=== PATIENT | female | born 1945 | race Caucasian/White ===

== ENCOUNTER 2022-03-30 00:19 | Day surgery (SDC) | payer MEDICARE, SELFPAY ==
--- NOTE | 2022-03-22 14:25 | PC.NURSE ---
Report to the Outpatient Waiting Room, entrance under the green pavilion located off [facility], at time _0600 on date _03/30/22 . OR Time: _0730 . Time changes happen often and if your time is changed the preop area will call you the afternoon before. - You and your visitor will be asked to self-screen and do not enter if you have any COVID symptoms. - Only one visitor and NO children visitors are allowed at this time. - The patient visitor is requested to leave or wait in car when not with patient due to restrictions. - A mask is required within the hospital. Patients may have clear liquids (water, carbonated beverages, clear teas, apple juice) until 3 hours prior to surgery with a maximum of 20 ounces. - No food from midnight until time of surgery - Infants may have breast milk until 4 hours before surgery, infant formula 6 hours prior to surgery. - Children will be allowed to drink immediately following surgery. If applicable, please bring a bottle or sippy cup to assist with drinking. Juice, water, soda, and popsicles are readily available. For infants on formula, please bring formula the day of surgery. Pacifiers are allowed. Take the following medications with a SIP of water the morning of surgery: __ADVAIR INHALER Medications to discontinue per physician ___PT STATES ELIQUIS 5 DAYS PRE OP PER DR PYLE . ALL VITAMINS AND SUPPLEMENTS 3 DAYS PRE OP Date to take last doseELIQUIS___03/24/22 AND VITAMINS AND SUPPLEMENTS 03/26/22 Please no make-up, nail yoruba, hairspray, perfume, deodorant, or body powder the day of surgery. No jewelry (including any body piercings) or valuables the day of surgery, leave them at home. Please take a shower or bath the night before, or the morning of, surgery with an antibacterial soap. Wear comfortable, loose fitting clothing. Children are encouraged to wear pajamas. - Jewelry must be removed prior to entering the operating room. Rings and piercings that are not removed may be cut off. - The hospital will not accept responsibility for valuables. - Please leave all valuables, including medications, at home the day of surgery. If you are going home after surgery, a licensed route sales delivery driver must drive you home. - NO public transportation without another adult. - We recommend that an adult stay with you for 24 hours following discharge. - We also recommend that you do not drive, make important decision, drink alcoholic beverages, or take any drugs that were not prescribed by your health care provider for at least 24 hours after your discharge time. For Pediatric surgeries, we recommend two adults accompany the child home (only one inside the building at this time). Follow any additional instructions given to you from your surgeon. If you or anyone in your household have experienced Covid symptoms in the past week, please notify your surgeon or the nurse liaison at the phone number below for possible testing. Telephone instructions given to __PATIENT and asked if any additional questions and then verbalized understanding. Patient advised to call surgeon office or pre surgery nurse liaison [phone] if any additional questions.
[2022-03-22 14:35] VITALS: BMI 19.1
[2022-03-30 06:16] VITALS: BP 155/81; PULSE 79; RESP 16; TEMP 36.6; O2SAT 98
--- NOTE | 2022-03-30 06:52 | WPDANESEPPF ---
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 Patient Data Age: 77 Gender: F Height: 1.65 m Weight: 52.2 kg Last Vital Signs Temp 36.6 C 03/30/22 06:16 Pulse 79 03/30/22 06:16 Resp 16 03/30/22 06:16 BP 155/81 H 03/30/22 06:16 Pulse Ox 98 03/30/22 06:16 O2 Del Method Room Air 03/30/22 06:16 Allergies Allergy/AdvReac Type Severity Reaction Status Date / Time No Known Allergies Allergy Verified 03/30/22 06:08 Home Medications Medication Instructions Recorded Confirmed Type alprazolam 0.5 mg tablet 0.5 mg PO PRN PRN Insomnia 03/22/22 03/30/22 History apixaban 5 mg tablet (Eliquis) 5 mg PO BID 03/22/22 03/30/22 History calcium carb-ergocalciferol (vit 1 tablet PO DAILY 03/22/22 03/30/22 History D2) 600 mg calcium-200 unit tablet fluticasone propionate 115 4 puff inhalation BID 03/22/22 03/30/22 History mcg-salmeterol 21 mcg/actuation HFA inhaler (Advair HFA) nicotine 7 mg/24 hr daily 7 mg transdermal DAILY 03/22/22 03/30/22 History transdermal patch psyllium seed (sugar) oral powder 1 tbsp PO DAILY 03/22/22 03/30/22 History Patient hx anesthesia problems: none Family hx anesthesia problems: none Results Review: All pre-operative results and documents have been reviewed as part of the pre-operative evaluation. FOR[facility]LY [facility] Past Medical History Medical History COPD (chronic obstructive pulmonary disease) Lung cancer Pulmonary embolism Social History Social History Smoking packs per day: 0.5 Smoking cigarettes per day: 10.0 Years smoked: 15 Smoking pack-years: 7.50 Smoking status: Former smoker Tobacco type: cigarettes Smoking end date: 03/01/22 Alcohol intake: never Living arrangements: alone Spiritual care concerns: No Anes - Eval Final PreProcedure Day of Procedure 03/30/22 06:52 Patient weight: normal Heart: regular rate and rhythm Lungs: decreased breath sounds Airway: Mallampati scale class II Neurological: other (alert) Last oral intake: >/= 8 hours ASA classification: III Emergent: no Anesthetic plan: proceed Anesthesia type and monitoring: general LMA and standard monitoring Results Review: All pre-operative results and documents have been reviewed as part of the pre-operative evaluation. Informed Consent: The patient's anesthetic plan and its attendant risks and benefits were discussed with the patient/family/POA. Questions were solicited and answers provided to the satisfaction of the patient/family/POA.
[2022-03-30] MEDS: LACTATED RINGERS 1,000 ML 30 ML IV CONT ×2 (06:55→08:58)
--- NOTE | 2022-03-30 07:01 | WPDHPUPDATE1 ---
History and Physical Update Update Date/Time: 03/30/22 07:01 History and Physical has been reviewed, including an updated exam of the patient. There are NO changes in the patient's condition. Risks, benefits, and alternatives have been discussed and questions answered. Patient agrees to proceed with procedure.
--- NOTE | 2022-03-30 07:12 | P.OP_ITS ---
Procedure Note - Detailed Date of Procedure 03/30/22 Pre-op Diagnosis Squamous Cell Ca of nose Post-op Diagnosis Same Procedure Performed 1. Excision SCC nose with FS 5.2cm 2. FTSG nose 5.2 x 3.2cm (16.64cm2) Surgeon Dustin Box MD Findings Incidental BCC noted in specimen. Margins clear on FS. Description of Procedure Preoperatively risks, benefits, alternatives were discussed in extensive detail. I want her to be very realistic about the risks involved as well as expectati ons. Reviewed all her options again today in great detail. Discussed realistic expectations of outcome. Her friend provided a example of a small line that she had had after a basal cell and I outlined this is not with this patient has. We outlined how much more the skin is involved than her friend. Also that she has elected to proceed with a full-thickness skin graft and how this is significa ntly different than her friends appearance. This was a lengthy open-ended conversation making sure she was well informed of what is involved, risk of recurrence, risks, realistic expectations of outcome, and postoperative course specially given the friends input on this manner. All questions were answered to her satisfaction today. Consent obtained. She was marked in the preoperative holding area with her verification. She was taken to the operating room placed supine on the operating table. Anesthesia by anesthesiology and prepped and draped in a standard sterile fashion. Surgical time-out was taken. 1% lidocaine epinephrine was used anesthetize locally. A 15 blade used to make an incision around the lesion. This was sent to pathology until we had clear margins. Once clear margins copious irrigated with saline solution and verified a strict hemostasis. I marked out the area left supraclavicular. 1% lidocaine and 0.25% Marcaine with epinephrine was used anesthetize locally. A lipid goal area of skin was taken and this was closed using 3-0 Stratafix followed by running subcuticular 4-0 Monocryl and tissue glue. I The full-thickness skin graft was trimmed and placed over the dorsum of the nose. This was sutured into place with 5 0 chromic. I created a tie-over bolster of Xeroform, wet cotton, and sewn into place with 4-0 silk. She tolerated the procedure well. Woken taken the PACU without difficulty. All instrument sponge counts were correct at the end of the case. Estimated Blood Loss 10 Drains No Packing Yes (Nasal bolster) Pathology Yes (frozen section) Complications No immediate complications Condition Stable Disposition PACU
[2022-03-30] MEDS: ceFAZolin 2 GM/D5W 50 ML 2 GM/50 ML BAG IVPB (07:24)
--- NOTE | 2022-03-30 07:54 | SUR.OPER ---
0752: Frozen Section sent with FRENCH Herring to Pathology. Received by Lita in Pathology at [id number].
[2022-03-30] MEDS: BUPIVACAINE HCL 0.25% PF 30 ML VIAL INFILTRATE (08:49)
[2022-03-30] MEDS: LIDO 2%/EPINEPHRINE 1:100,000 20 ML VIAL INFILTRATE (08:50)
[2022-03-30 08:58] VITALS: BP 123/64; PULSE 90; RESP 12; TEMP 36.2; O2SAT 100
[2022-03-30 09:10] VITALS: BP 118/70; PULSE 90; RESP 20; O2SAT 100
[2022-03-30 09:19] VITALS: BP 118/70; PULSE 85; RESP 16; O2SAT 100
[2022-03-30 09:22] VITALS: BP 133/64; PULSE 91; RESP 20
[2022-03-30 09:50] VITALS: BP 122/70; PULSE 63; RESP 20
== END 2022-03-30 10:00 | disposition home or self-care (01) ==
PROVIDERS: PCP Family Medicine; Visit Provider Surgery Plastic and Reconstructive Surgery
PROC: (CPT 11646; principal; 2022-03-30 07:30)
DX: C44.321 Squamous cell carcinoma of skin of nose (principal); J44.9 Chronic obstructive pulmonary disease, unspecified; Z85.118 Personal history of other malignant neoplasm of bronchus and lung; Z86.711 Personal history of pulmonary embolism; Z87.891 Personal history of nicotine dependence; Z79.01 Long term (current) use of anticoagulants; Z79.51 Long term (current) use of inhaled steroids
CPT/HCPCS: 11646; 15260; 88305; 88331; A9270; J0690; J1100; J2405; J2704; J3010; J7120